=== PATIENT | male | born 1960 | race Caucasian/White ===

== ENCOUNTER 2021-04-21 10:11 | Emergency (ER) | payer MEDICAID, OTHER ==
[~2021-04-21] VITALS: Ht 170.2 cm; Wt 90.7 kg
[2021-04-21 12:51] VITALS: BP 144/95
== END 2021-04-21 12:58 | disposition home or self-care (01) ==
LOC: ER 10:11
DX: Z48.01 Encounter for change or removal of surgical wound dressing (principal); Z89.411 Acquired absence of right great toe; I10 Essential (primary) hypertension; E11.9 Type 2 diabetes mellitus without complications; Z90.89 Acquired absence of other organs; Z90.49 Acquired absence of other specified parts of digestive tract
CPT/HCPCS: 73700